=== PATIENT | male | born 1990 | race American Indian/Alaskan Native ===

== ENCOUNTER 2019-02-04 00:10 | Emergency (ER) | payer MEDICAID ==
[2019-02-04] MEDS ORDERED: XYLOCAINE 2% INFILTRATI STA (04:16)
--- NOTE | 2019-02-04 04:39 | Emergency Department Report ---
ED Laceration HPI - HPI Chief Complaint: Wound/Laceration Stated Complaint: INJURY TO BOTTOM LIP Time Seen by Provider: 02/04/19 04:14 Severity: mild Tetanus Status: Up to Date Laceration Symptoms: Yes Pain, No Foreign Body Sensation, No Numbness, No Weakness Other History: was playing basketball and got elbowed in lower lip around 19:00. Denies LOC or broken teeth. No neck pain . No sob or cp. ED Review of Systems ROS: Stated complaint: INJURY TO BOTTOM LIP Other details as noted in HPI Constitutional: denies: chills, fever Eyes: denies: eye pain, eye discharge, vision change ENT: denies: ear pain, throat pain Respiratory: denies: cough, shortness of breath, wheezing Cardiovascular: denies: chest pain, palpitations Endocrine: no symptoms reported Gastrointestinal: denies: abdominal pain, nausea, diarrhea Genitourinary: denies: urgency, dysuria Musculoskeletal: denies: back pain, joint swelling, arthralgia Skin: denies: rash, lesions Neurological: denies: headache, weakness, paresthesias Psychiatric: denies: anxiety, depression Hematological/Lymphatic: denies: easy bleeding, easy bruising ED Past Medical Hx - Medications Home Medications: Home Medications Medication Instructions Recorded Confirmed Last Taken Type Amoxicillin/Potassium Clav 1 each PO BID #20 tablet 02/04/19 Unknown Rx [Augmentin 875-125 Tablet] Chlorhexidine Mouthwash [Peridex] 15 ml MM BID #1 bottle 02/04/19 Unknown Rx Laceration Physical Exam - Exam General: Vital signs noted. No distress. Alert and acting appropriately. Wound Length (cm): 2 Laceration Location: Other (lower lip. no dental trauma) Laceration Exam: Yes Normal Distal CMS, No Foreign Body, No Exposed Tendon, Vessel, or Nerve, No Tendon Injury ED Course Vital Signs 02/04/19 00:13 Temperature 98.7 F Pulse Rate 63 Respiratory 18 Rate Blood Pressure 118/69 O2 Sat by Pulse 99 Oximetry - Laceration /Wound Repair Face Wound Length (cm): 2 Wound's Depth, Shape: irregular Wound Explored: clean Betadine Prep?: No Anesthesia: 1% Lidocaine Wound Repaired With: sutures Suture Size/Type: 5:0 Number of Sutures: 4 (viicryl) Sterile Dressing Applied?: No Critical care attestation.: If time is entered above; I have spent that time in minutes in the direct care of this critically ill patient, excluding procedure time. ED Disposition Clinical Impression: Laceration of lip Disposition: DC-01 TO HOME OR SELFCARE Is pt being admited?: No Does the pt Need Aspirin: No Condition: Stable Instructions: Absorbable Suture Care (ED) Prescriptions: Amoxicillin/Potassium Clav [Augmentin 875-125 Tablet] 1 each PO BID #20 tablet Chlorhexidine Mouthwash [Peridex] 15 ml MM BID #1 bottle Referrals: MAURI PATEL MD [Primary Care Provider] - 3-5 Days
[2019-02-04 20:00] VITALS: BP 118/69
== END 2019-02-04 04:54 | disposition home or self-care (01) ==
LOC: ED 00:10
DX: S01.511A Laceration without foreign body of lip, initial encounter (principal); W50.0XXA Accidental hit or strike by another person, initial encounter; Y93.67 Activity, basketball; Y92.89 Other specified places as the place of occurrence of the external cause; Y99.8 Other external cause status
CPT/HCPCS: 99281